=== PATIENT | female | born 1975 | race Caucasian/White ===

== ENCOUNTER 2021-10-29 07:00 | Outpatient (RCR) | payer SELFPAY | END 2021-11-18 13:21 | disposition home or self-care (01) | LOC: PT.CARL 07:00 | PROVIDERS: Visit Provider Emergency Medicine | DX: M54.2 Cervicalgia (principal); M54.50 Low back pain, unspecified | CPT/HCPCS: 20560; 97010; 97014; 97110; 97140; 97163; G0283 ==

== ENCOUNTER 2022-05-08 04:37 | Emergency (ER) | payer BC, SELFPAY ==
[2022-05-08 04:40] VITALS: BMI 26.6
[2022-05-08 04:41] VITALS: BP 143/89; PULSE 84; RESP 16; TEMP 36.6; O2SAT 98; BMI 26.6
--- NOTE | 2022-05-08 04:44 | CT_ITS ---
PROCEDURE INFORMATION: Exam: CT Abdomen And Pelvis Without Contrast Exam date and time: 05/08/2022 5:00 AM Age: 46 years old Clinical indication: Abdominal pain; Flank; Left; Prior surgery; Surgery type: Cholecystectomy; Additional info: L lower abd flank pain TECHNIQUE: Imaging protocol: Computed tomography of the abdomen and pelvis without contrast. Radiation optimization: All CT scans at this facility use at least one of these dose optimization techniques: automated exposure control; mA and/or kV adjustment per patient size (includes targeted exams where dose is matched to clinical indication); or iterative reconstruction. COMPARISON: No relevant prior studies available. FINDINGS: Liver: Calcified hepatic granulomas. Gallbladder and bile ducts: Prior cholecystectomy. Pancreas: Normal. No ductal dilation. Spleen: Calcified splenic granulomas. Adrenal glands: Normal. No mass. Kidneys and ureters: Small nonobstructing left renal calculus. 3 mm calculus in the distal most left ureter associated with mild left hydroureteronephrosis. Stomach and bowel: Unremarkable. No obstruction. No mucosal thickening. Appendix: No evidence of appendicitis. Intraperitoneal space: Unremarkable. No free air. No significant fluid collection. Vasculature: Few atheromatous vascular calcifications. Lymph nodes: Unremarkable. No enlarged lymph nodes. Urinary bladder: Unremarkable as visualized. Reproductive: Unremarkable as visualized. Bones/joints: Unremarkable. No acute fracture. Soft tissues: Unremarkable. IMPRESSION: 1. Small distal most left ureteral calculus causing mild obstruction. 2. Additional nonobstructing left renal calculus. 3. Other nonacute findings above.
[2022-05-08 04:46] LABS: Microscopic, Urine URINE MICROSCOPIC (MICROSCOPIC)
[2022-05-08 04:47] LABS: Appearance,Urine CLEAR (Clear); Bilirubin,Urine Negative (Negative); Blood, Urine 3+ (Negative); Color,Urine YELLOW (Yellow); Glucose,Urine (UA) Negative (Negative); Ketones,Urine Negative (Negative); Leukocyte Esterase,Urine TRACE (Negative); Nitrate,Urine Negative (Negative); PH,Urine 5.5 (5.0-8.5); Protein,Urine Negative (Negative); Specific Gravity, Urine >= 1.030 (1.005-1.030); Urobilinogen,Urine 0.2 EU/dl (0.2)
[2022-05-08 04:51] LABS: Urine Pregnancy, HCG Qual. Negative (Negative)
[2022-05-08 04:57] LABS: Basophils # 0.1 K/mm3 (0-0.2); Basophils % 1.1 % (0.1-2.0); Eosinophils # 0.3 K/mm3 (0.0-0.4); Eosinophils % 2.3 % (0.1-12.0); Lymphocytes # 3.1 K/mm3 (0.7-4.5); Lymphocytes % 25.9 % (10-50); Mean Corpuscular HGB Conc 31.8 g/dL (31.8-35.4); Mean Corpuscular Hemoglobin 30.6 pg (27.0-31.2); Mean Corpuscular Volume 96.4 fl (81-99); Mean Platelet Volume 8.2 fl (7.4-10.4); Monocytes # 0.8 K/mm3 (0.1-1.0); Monocytes % 6.7 % (1.7-9.3); Neutrophils # 7.7 K/mm3 (1.8-7.8); Platelet Count 466 K/mm3 (142-424); Red Blood Count 4.88 M/mm3 (4.20-5.40); Red Cell Distribution Width 13.2 % (11.5-17.5); White Blood Count 12.1 K/mm3 (4.8-10.8)
[2022-05-08 05:00] LABS: Alanine Aminotransferase 28 U/L (12-78); Albumin Level 4.1 g/dl (3.5-5.0); Albumin/Globulin Ratio 1.5 (1.1-1.8); Alkaline Phosphatase 118 U/L (38-126); Anion Gap 11.1 mEq/L (5-15); Aspartate Amino Transferase 21 U/L (14-36); Bilirubin,Total 0.4 mg/dl (0.2-1.3); Blood Urea Nitrogen 24 mg/dl (7-17); Calcium 8.8 mg/dl (8.4-10.2); Carbon Dioxide 23 mmol/L (22.0-30.0); Chloride 111 mmol/L (98-107); Creatinine Clearance Estimated 102 mL/min (50-200); Estimated Glomerular Filt Rate 77 ml/min (>60); GFR (African American) 93 ML/MIN (>60); Globulin 2.7 g/dL (1.3-3.2); Glucose 86 mg/dl (74-100); Potassium 3.1 mmoL/L (3.5-5.1); Sodium 142 mmol/L (136-145); Total Protein,Serum 6.8 g/dl (6.3-8.2)
[2022-05-08 05:03] LABS: Bacteria,Urine Trace /lpf
[2022-05-08 05:11] LABS: C-Reactive Protein < 0.3 mg/L (0-4)
--- NOTE | 2022-05-08 05:15 | PC.NURSE ---
MD MADE AWARE OF POTASSIUM 3.1.
--- NOTE | 2022-05-08 05:20 | HMH.EDABDPAI ---
Discharge Plan Disposition Patient Disposition: Home, Self-Care Prescriptions Prescriptions: New tamsulosin [Flomax] 0.4 mg capsule 0.4 mg PO DAILY Qty: 10 0RF No Action ibuprofen 800 mg tablet 800 mg PO Q6 PRN (Reason: Pain) Label Comments: TAKE 1 TABLET BY MOUTH EVERY 6 HOURS NEEDED FOR PAIN Referrals Follow up/Referrals: Yoav Rapp MD [Primary Care Provider] - See instructions Clinical Impressions Clinical Impression: Renal colic on left side Instructions Patient Instructions: DI for Kidney Stones Discharge ED Provider: Mj Hernandez Abdominal Pain HPI General Chief Complaint: Abdominal Pain Stated Complaint: Back Pain Time Seen by Provider: 05/08/22 05:20 Mode of Arrival: EMS Source of Information: Patient, EMS and Medical Record Limitations: No Limitations Description of Symptoms (Recalled from ER Triage Doc. by RN): PT WOKE UP WITH LEFT FLANK PAIN AT 0300 THAT HAS NOT RESOLVED AFTER TAKING MOTRIN. History of Present Illness HPI narrative: wf with lt lower abd pain with rad to flank tonight complaint: abdominal pain and flank pain Onset (ago): hour(s) Consistency: intermittent Location: LLQ and L flank Severity: moderate Quality: sharp Associated symptoms: denies other symptoms Related Data Home Medications Medication Instructions Recorded Confirmed ibuprofen 800 mg tablet 800 mg PO Q6 PRN Pain 05/08/22 05/08/22 Previous Rx's Medication Instructions Recorded tamsulosin 0.4 mg capsule (Flomax) 0.4 mg PO DAILY #10 caps 05/08/22 Allergies Allergy/AdvReac Type Severity Reaction Status Date / Time No Known Allergies Allergy Verified 05/08/22 04:40 PFSH PFS Medical History (Updated 05/08/22 @ 07:17 by Mj Hernandez MD) COPD (chronic obstructive pulmonary disease) History of COVID-19 Pulmonary fibrosis, unspecified Surgical History (Updated 05/08/22 @ 04:51 by Rosibel Leblanc RN) History of cholecystectomy Social History (Updated 05/08/22 @ 04:53 by Rosibel Leblanc, GARCIA) Smoking Status: Current every day smoker alcohol intake: never current occupational status: employed Travel in the last 8 weeks: None ROS Obtained: Yes All systems reviewed & no additional complaints except as documented Constitutional Constitutional: Denies fever(s) Cardiovascular Cardiovascular: Denies chest pain Respiratory Respiratory: Denies cough Gastrointestinal Gastrointestingal: Reports as per HPI and abdominal pain Genitourinary Female Genitourinary: Denies abnormal vaginal bleeding Physical Exam General General appearance: alert Head Head exam: normocephalic Eye Eye exam: Present PERRL and EOMI; Absent scleral icterus ENT ENT exam: Present mucous membranes moist Neck Neck exam: Present trachea midline Respiratory Respiratory exam: Present normal lung sounds bilaterally; Absent respiratory distress Cardiovascular Cardiovascular exam: Present regular rate; Absent systolic murmur Abdominal Exam Abdominal exam: Present soft and tenderness; Absent guarding or rebound Abdominal tenderness: Present LLQ and moderate Extremities Exam Extremities exam: Present full ROM; Absent calf tenderness Back Exam Back exam: Absent CVA tenderness (L) Neurological Exam Neurological exam: Present alert, oriented X3 and CN II-XII intact; Absent motor sensory deficit Psychiatric Psychiatric exam: Present normal affect Skin Skin exam: Absent rash Medical Decision Making Medical Records Medical records reviewed: Yes I reviewed the patient's medical records. Tam Inquiry Pt receiving controlled substance: No Vital Signs: 05/08/22 04:41 05/08/22 05:21 05/08/22 05:30 Temperature 97.9 F Temperature Source Oral Pulse Rate 87 68 Pulse Rate [Left Radial] 84 Respiratory Rate 16 16 Blood Pressure 142/78 H 163/86 H Blood Pressure [Left Arm] 143/89 H Blood Pressure Mean 113 Blood Pressure Mean [Left Arm] 107 Blood Pressure Source [Left
[2022-05-08 05:21] VITALS: BP 142/78; PULSE 87; RESP 16; O2SAT 97
[2022-05-08 05:23] LABS: Erythrocyte Sedimentation Rate 11 mm/hr (0-20)
[2022-05-08 05:30] VITALS: BP 163/86; PULSE 68; O2SAT 100
[2022-05-08 05:36] LABS: Amylase 91 U/L (30-110); Lipase 80 U/L (23-300)
[2022-05-08 06:00] VITALS: BP 155/76; PULSE 58; O2SAT 98
--- NOTE | 2022-05-08 07:10 | PC.NURSE ---
Called pt's to verbalize consent for CT scan. Signed consent with with support technician Margaret
[2022-05-08 07:14] VITALS: BP 133/72; PULSE 78; RESP 18; TEMP 36.6; O2SAT 98
== END 2022-05-08 07:40 | disposition home or self-care (01) ==
PROVIDERS: Emergency Provider Emergency Medicine; PCP Social Worker
DX: N20.2 Calculus of kidney with calculus of ureter (principal); Z72.0 Tobacco use
CPT/HCPCS: 74176; 80053; 81001; 81025; 82150; 83690; 84145; 85025; 85651; 86140; 96365; 96375; 96376; 99284; J2405

== ENCOUNTER 2024-05-15 09:38 | Emergency (ER) | payer OTHER, SELFPAY ==
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
--- OUTSIDE RECORDS SUMMARY | 2024-05-15 09:43 | XMS_ITS ---
Author Organization [facility] Address [address] [place] [address] Phone Care Team Providers Care Marketing Associate Name Role Phone Meño CM, Jean Ashraf Unavailable [phone] Yoav Rapp MD Unavailable [phone] Problems Includes: Active, inactive, and resolved Problems All Visits Onset Date Resolved Date Provider Condition S tatus Neck Pain 06/26/2022 Jean Wilder MD Active Last Documented On 8:58AM ; [facility] Plan of Treatment Instructions to patient Intervention and counseling on cessation of tobacco use Last Documented On 2 9:04AM ; [facility] Lose weight Last Documented On 2 9:05AM ; [facility] Assessments Includes: Assessments for all patient encounters No Assessments Recorded Instructions Includes: Instructions for all patient encounters Instructions to patient Intervention and counseling on cessation of tobacco use Last Documented On 2 9:04AM ; [facility] Lose weight Last Documented On 9:05AM ; [facility] Medical Equipment - Implanted Devices Includes: Current and historical Devices No Medical Equipment Recorded Medications Includes: Current and historical Medications Current Medications (continue as prescribed) Ipratropium-Albuterol 0.5-2.5 (3) MG/3ML Inhalat ion Solution 06/04/2022 Provider: Diagnosis: Last Documented On 2 8:59AM By Estefanía Rosales ; [facility] Symbicort 160-4.5 MCG/ACT Inhalation Aerosol Provider: Diagnosis: Last Documented On 2 8:59AM By Estefanía Rosales ; [facility] ALPRAZolam 0.5 MG Oral Tablet 06/04/2022 Provider: Diagnosis: Last Documented On 2 8:59AM By Jane Cordero ; [facility] Vitamin D3 1.25 MG (53372 UT) Oral Capsule 06/04/2022 Provider: Diagnosis: Last Documented On 2 8:59AM By [facility] HYDROcodone-Acetaminophen 5- 325 MG Oral Tablet 05/08/2022 Provider: Mj Hernandez MD Diagnosis: Last Documented On 2 8:59AM By Estefanía Rosales ; [facility] Tamsulosin HCl 0.4 MG Oral Capsule 05/08/2022 Provid er: Mj Hernandez MD Diagnosis: Last Documented On 2 8:59AM By Estefanía Rosales ; [facility] Ibuprofen 800 MG Oral Tablet 01/29/2022 Provider: Diagnosis: Last Documented On 2 8:59AM By Estefanía Rosales ; [facility] Past Medications on file ALPRAZolam 0.5 MG Oral Tablet 06/04/2022 - 06/26/2022 Provider: Diagnosis: Last Documented On 2 8:59AM By Jane Cordero ; [facility] Vitamin D3 1.25 MG (65456 UT) Oral Capsule 06/04/2022 - 06/26/2022 Provider: Diagnosis: Last Documented On 2 8:59AM By Jane Cordero ; [facility] Medications Administered Includes: Administered Medications in patient's chart No Administered Medications Recorded Results Includes: Results from 05/15/2023 through 05/15/2024 No Results Recorded For Specified Dates History of Present Illness History of Present Illness not supported for this document type No History of Present Illness Recorded Social History Description Last Updated Tobacco use 06/26/2022 Last Documented On 2 10:27AM ; [facility] Caffeine use 06/26/2022 Last Documented On 2 10:27AM ; [facility] No recent change in diet 06/26/2022 Last Documented On 2 10:27AM ; [facility] Not exercising regularly 06/26/2022 Last Documented On 2 10:27AM ; [facility], [facility] Not using alcohol 06/26/2022 Last Documented On 2 10:27AM ; [facility], [facility] Not using drugs 06/26/2022 Last Documented On 2 10:27AM ; [facility], [facility] Yes, current smoker. 06/26/2022 Last Documented On 2 10:27AM ; [facility], [facility] Never drank alcohol 06/26/2022 Last Documented On 2 10:27AM ; [facility], [facility] Working part-time 06/26/2022 Last Documented On 2 10:27AM ; [facility], [facility] Smoking Status Unknown Procedures and Surgical History Surgical History Last Updated History of History of Gallbladder 2021 Last Documented On 2 10:27AM ; [facility], [facility] Medical History Includes: Medical History in patient's chart Description Last Updated Pulmonary fibrosis 06/26/2022 Last Documented On 2 10:27AM ; [facility], [facility] No recent immunization for flu 2 Last Documented On 2 10:27AM ; [facility], [facility] No recent immunization for pneumococcal pneumonia 06/26/2022 Last Documented On 2 10:27AM ; [facility], [facility] Family History Includes: Family History in patient's chart Description Last Updated Family history of cancer 06/26/2022 Last Documented On 2 10:27AM ; [facility], [facility] Paternal grandfather's history of family history of cancer 06/26/2022 Last Documented On 2 10:27AM ; [facility], [facility] Review of Systems Review of Systems not supported for this document type No Review of Systems Recorded Mental Status Description No anxiety Functional Status No Functional Status Recorded Physical Exam Physical Exam not supported for this document type No Physical Exam Recorded Allergies Includes: Active, inactive, and resolved Allergies No Known Allergies Insurance Includes: Active Insurance Policies Plan Name Member ID Group # Subscriber Relationship Effect parrish Dates 1 - [facility] [id number] Vita Craig Self Clinical Notes Includes: Signed Clinical Notes starting from 08/14/2022 No Clinical Notes Recorded
--- OUTSIDE RECORDS SUMMARY | 2024-05-15 09:43 | XMS_ITS ---
Care Plan - [facility], [facility] Created on: May 15, 2024 Vita Craig : 1975 Sex: Female Author Organization [facility] Address [address] [place] [address] Phone Care Team Providers Care Intranet Specialist Name Role Phone Meño CM, Jean Ashraf Unavailable [phone] Dionte CM, Yoav Unavailable [phone]
[2024-05-15 10:05] VITALS: BP 147/85; PULSE 91; RESP 20; TEMP 36.5; O2SAT 97; BMI 27.3
--- NOTE | 2024-05-15 10:16 | XR_ITS ---
PROCEDURE INFORMATION: Exam: XR Chest Exam date and time: 05/15/2024 10:27 AM Age: 48 years old Clinical indication: Cough; Additional info: Cough/congestion x 1 week, smoker TECHNIQUE: Imaging protocol: Radiologic exam of the chest. Views: 2 views. COMPARISON: CT ABDOMEN PELVIS WO CON 05/08/2022 5:00 AM FINDINGS: Lungs: No evidence of pneumonia or interstitial edema. Pleural spaces: Unremarkable. No pleural effusion. No pneumothorax. Heart/Mediastinum: Unremarkable. No cardiomegaly. Bones/joints: Unremarkable. IMPRESSION: No evidence of pneumonia or interstitial edema.
--- NOTE | 2024-05-15 10:16 | EXP.UTC ---
Discharge Plan Disposition Patient Disposition: Home, Self-Care Condition: Good Prescriptions Prescriptions: New promethazine-DM 6.25-15 mg/5 mL syrup 5 ml PO Q6H PRN (Reason: cough) Qty: 118 0RF azithromycin [Zithromax Z-Eh] 250 mg tablet See Rx Instructions .ROUTE .COMPLEX 5 Days Qty: 6 0RF Rx Instructions: For 250 mg dose pack: take 500 mg today (day 1), then 250 mg for 4 days (days 2-5) methylprednisolone [Medrol (Eh)] 4 mg tablets,dose pack See Rx Instructions .Route .COMPLEX 6 Days Qty: 21 0RF Rx Instructions: taper pack; No Action budesonide-formoterol [Breyna] 160-4.5 mcg/actuation HFA aerosol inhaler 2 puff INHALATION BID Patient Comments: INHALE 2 PUFFS BY MOUTH TWICE DAILY Referrals Follow up/Referrals: Yoav Rapp MD [Primary Care Provider] - See instructions Activity Restrictions/Add. Instructions Additional Instructions/Restrictions: Start antibiotic today. Be sure to complete entire prescription even if feeling better Monitor temp. Tylenol every 4 hours as needed and / or ibuprofen every 6 hours as needed ( As long as your primary care physician has told you that it ok to take both. For fever/aches/pains ER if no less than 101 despite Tylenol or Motrin Humidifier/vaporizer or hot steamy shower Inhaler every 4-6 hours as needed like we discussed. If unsure how to use it, ask pharmacist to demonstrate how. Should help open airways and improve cough, wheezing, and shortness of breath Mucinex during the day for your cough and cough suppressant only at night. Be sure to drink lots of water. Insurance may not cover a prescriptions for mucinex. Might be cheaper to get 400mg tablets and take 2 tablet in the morning, mid-day and evening with lots of water. *Promethazine DM cough syrup will cause drowsiness. Use only at night. No driving, operating machinery or caring for small children after taking it *Start steroid today. Helps with inflammation therefore, cough and wheezing. Follow directions on the package. Reviewed side effects. Patient reports taking them before. Follow up IMMEDIATELY for new or worsening of symptoms OR no noticeable improvement over the next 48-72 hours. 911 immediately for any life threatening symptoms such as chest pain or difficulty breathing Clinical Impressions Clinical Impression: Bronchitis Instructions Patient Instructions: Acute Bronchitis Print Language Print Language: Vincentian Discharge ED Provider: Lou Vogt [facility] HPI General Stated complaint: cough, congestion Time Seen by Provider: 05/15/24 10:16 History of Present Illness Provider Complaint: Patient states that she has been having sore throat, cough and congestion and pain in left ribs at times with coughing States she was worried that she may have Bronchitis or Pneumonia States she has been taking some cough medications but they havent helped much so today when she was still feeling wheezy at times and having cough and chest congestion she came in to get checked Related Data Home Medications ?Medication ?Instructions ?Recorded ?Confirmed budesonide-formoterol HFA 160 2 puff inhalation BID 05/15/24 05/15/24 mcg-4.5 mcg/actuation aerosol inhaler (Breyna) Previous Rx's ?Medication ?Instructions ?Recorded azithromycin 250 mg tablet See Rx Instructions PO .COMPLEX 5 05/15/24 (Zithromax Z-Eh) days #6 tabs methylprednisolone 4 mg tablets in See Rx Instructions .Route 05/15/24 a dose pack (Medrol (Eh)) .COMPLEX 6 days #21 tabs promethazine-DM 6.25 mg-15 mg/5 mL 5 ml PO Q6H PRN cough #118 mL 05/15/24 oral syrup Allergies Allergy/AdvReac Type Severity Reaction Status Date / Time No Known Allergies Allergy Verified 05/08/22 04:40 [facility] Disclaimer: The information contained in this section may have been updated after the patient was seen, as this information can be updated by other users. Medical History (Updated 05/15/24 @ 11:28 by Lou Vogt APRN) Urinary tract infection Kidney stone Anxiety Pulmonary fibrosis, unspecified History of COVID-19 COPD (chronic obstructive pulmonary disease) Surgical History History of cholecystectomy Social History (Updated 05/08/22 @ 07:17 by Mj Hernandez MD) Smoking Status: Current every day smoker alcohol intake: never current occupational status: employed Travel in the last 8 weeks: None ROS Obtained: Yes All systems reviewed & no additional complaints except as documented and Yes Systems reviewed as appropriate & no additional complaints except as documented Constitutional Constitutional: Reports system reviewed and no additional complaints, except as documented and Reports as per HPI ENT Ears, Nose, Mouth, and Throat: Reports system reviewed and no additional complaints, except as documented, Reports as per HPI, Reports nasal congestion, Reports nasal discharge and Reports sore throat (earlier in the week not now) Cardiovascular Cardiovascular: Reports system reviewed and no additional complaints, except as documented and Reports as per HPI Respiratory Respiratory: Reports system reviewed and no additional complaints, except as documented, Reports as per HPI, Reports shortness of breath and Reports cough Gastrointestinal Gastrointestingal: Reports system reviewed and no additional complaints, except as documented and as per HPI Physical Exam General General appearance: alert and in no apparent distress Respiratory Respiratory exam: Present normal lung sounds bilaterally; Absent respiratory distress or wheezes Cardiovascular Cardiovascular exam: Present regular rate, normal rhythm and normal heart sounds Neurological Exam Neurological exam: Present alert, oriented X3 and normal gait Medical Decision Making Tam Inquiry Pt receiving controlled substance: No Tam was queried for this patient: No Orders (Tests/Meds): ORDERS Category Date Time Status Chest XR 2 view (NOT portable) [XR chest 2V] Stat Exams 05/15/24 10:16 Ordered Radiology Data #1: Image(s): Chest Image Reviewed: Yes I have reviewed radiologist's interpretation IMPRESSION: No evidence of pneumonia or interstitial edema.
[2024-05-15 11:31] VITALS: BP 147/85; PULSE 91; RESP 20; TEMP 36.5; O2SAT 97
== END 2024-05-15 11:36 | disposition home or self-care (01) ==
PROVIDERS: Emergency Provider Nurse Practitioner; PCP Social Worker
DX: J20.9 Acute bronchitis, unspecified (principal); R06.2 Wheezing; R07.0 Pain in throat; R05.9 Cough, unspecified
CPT/HCPCS: 71046; 99204; 99212; G0463

== ENCOUNTER 2024-06-04 13:52 | Emergency (ER) | payer OTHER, SELFPAY ==
[2024-06-04 13:53] VITALS: BP 166/108; PULSE 89; RESP 18; TEMP 36.7; O2SAT 98; BMI 26.8
--- NOTE | 2024-06-04 14:12 | PC.NURSE ---
Rounded on patient, tech took patient a warm blanket per patients request.
[2024-06-04 14:26] LABS: Microscopic, Urine URINE MICROSCOPIC (MICROSCOPIC)
[2024-06-04 14:29] LABS: Appearance,Urine CLEAR (Clear); Blood, Urine 2+ (Negative); Color,Urine YELLOW (Yellow); Glucose,Urine (UA) TRACE (Negative); Ketones,Urine Negative (Negative); Leukocyte Esterase,Urine TRACE (Negative); Nitrate,Urine POSITIVE (Negative); Protein,Urine 2+ (Negative); Specific Gravity, Urine 1.025 (1.005-1.030)
--- NOTE | 2024-06-04 14:31 | CT_ITS ---
PROCEDURE INFORMATION: Exam: CT Abdomen And Pelvis Without Contrast Exam date and time: 06/04/2024 2:42 PM Age: 48 years old Clinical indication: Abdominal pain; Flank; Left; Additional info: L flank/llq pain TECHNIQUE: Imaging protocol: Computed tomography of the abdomen and pelvis without contrast. Radiation optimization: All CT scans at this facility use at least one of these dose optimization techniques: automated exposure control; mA and/or kV adjustment per patient size (includes targeted exams where dose is matched to clinical indication); or iterative reconstruction. COMPARISON: CT ABDOMEN PELVIS WO CON 05/08/2022 5:00 AM FINDINGS: Liver: Calcified liver granulomata. Gallbladder and biliary ducts: Cholecystectomy. Pancreas: Normal. No ductal dilation. Spleen: Calcified splenic granulomata. Adrenal glands: Normal. No mass. Kidneys and ureters: 4 mm stone in the left ureter midportion with moderate hydronephrosis, perinephric stranding and mild proximal hydroureter. Stomach and bowel: Unremarkable. No obstruction. No mucosal thickening. Appendix: No evidence of appendicitis. Intraperitoneal space: Unremarkable. No free air. No significant fluid collection. Vasculature: Atherosclerosis. Lymph nodes: Unremarkable. No enlarged lymph nodes. Urinary bladder: Unremarkable as visualized. Reproductive: Unremarkable as visualized. Bones/joints: Unremarkable. No acute fracture. Soft tissues: Unremarkable. IMPRESSION: 1. 4 mm stone in the left ureter midportion with moderate hydronephrosis, perinephric stranding and mild proximal hydroureter. 2. Atherosclerosis. 3. Evidence of prior granulomatous disease.
[2024-06-04 14:34] LABS: Basophils # 0.1 K/mm3 (0-0.2); Basophils % 0.4 % (0.1-2.0); Eosinophils # 0.3 K/mm3 (0.0-0.4); Hematocrit 44.6 % (37.0-47.0); Hemoglobin 15.4 g/dL (12.2-16.2); Lymphocytes % 14.1 % (10-50); Mean Corpuscular HGB Conc 34.5 g/dL (31.8-35.4); Mean Corpuscular Hemoglobin 32.6 pg (27.0-31.2); Mean Corpuscular Volume 94.4 fl (81-99); Mean Platelet Volume 7.8 fl (7.4-10.4); Monocytes # 1.1 K/mm3 (0.1-1.0); Neutrophils # 10.5 K/mm3 (1.8-7.8); Neutrophils % 75.6 % (37.0-80.0); Platelet Count 279 K/mm3 (142-424); Red Blood Count 4.73 M/mm3 (4.20-5.40); Red Cell Distribution Width 13.5 % (11.5-17.5); White Blood Count 13.9 K/mm3 (4.8-10.8)
--- NOTE | 2024-06-04 14:34 | ED_ITS ---
Discharge Plan Disposition Patient Disposition: Home, Self-Care Prescriptions Prescriptions: New hydrocodone-acetaminophen 5-325 mg tablet 1 tab PO Q6H PRN (Reason: pain) 3 Days Qty: 12 0RF ibuprofen 600 mg tablet 600 mg PO Q8H PRN (Reason: pain) 7 Days Qty: 21 0RF ondansetron 4 mg tablet,disintegrating 4 mg PO Q6H PRN (Reason: nausea and vomiting) 5 Days Qty: 20 0RF cefdinir 300 mg capsule 300 mg PO BID 10 Days Qty: 20 0RF No Action budesonide-formoterol [Breyna] 160-4.5 mcg/actuation HFA aerosol inhaler 2 puff INHALATION BID Patient Comments: INHALE 2 PUFFS BY MOUTH TWICE DAILY promethazine-DM 6.25-15 mg/5 mL syrup 5 ml PO Q6H PRN (Reason: cough) Qty: 118 0RF azithromycin [Zithromax Z-Eh] 250 mg tablet See Rx Instructions .ROUTE .COMPLEX 5 Days Qty: 6 0RF Rx Instructions: For 250 mg dose pack: take 500 mg today (day 1), then 250 mg for 4 days (days 2-5) methylprednisolone [Medrol (Eh)] 4 mg tablets,dose pack See Rx Instructions .Route .COMPLEX 6 Days Qty: 21 0RF Rx Instructions: taper pack; Referrals Follow up/Referrals: Yoav Rapp MD [Primary Care Provider] - See instructions Mayur Mahmood MD [Staff Physician] - See instructions Activity Restrictions/Add. Instructions Additional Instructions/Restrictions: You have a 4 mm mid ureteral obstructing kidney stone. You also have a urinalysis that is nitrite positive but this is most likely secondary to the Pyridium that you have recently been using and you have no signs or symptoms clinically of a kidney infection or sepsis. Additionally your kidney function is a little bit worse than normal and I recommend that you repeat your creatinine within the next week. If you have any high fevers chills refractory symptoms I recommend that you go to an emergency department that has urology coverage or return here and we may transfer you. As discussed you are offered transfer but we are opting with shared decision making for outpatient management. I recommend that you call Dr. Montero first thing on Thursday for a follow-up appointment. Additionally please follow-up with your urine culture and if negative you may discontinue antibiotics. Clinical Impressions Clinical Impression: Hydronephrosis with urinary obstruction due to ureteral calculus Instructions Patient Instructions: DI for Urinary Tract Infection (UTI), DI for Urinary Tract Infection in Children Print Language Print Language: Khmer Discharge ED Provider: Krzysztof Moody General Adult HPI <Frannie Merlos - Last Filed: 06/04/24 15:27> General Chief complaint: Urogenital-Female Stated complaint: poss kidney stone Time Seen by Provider: 06/04/24 14:14 Mode of Arrival: Ambulatory Source of Information: Patient Limitations: No Limitations Description of Symptoms (Recalled from ER Triage Doc. by RN): left back and abdominal pain. has history of kidney stones History of Present Illness HPI narrative: This patient is a 48-year-old female with a history of tobacco use presenting to the emergency department for evaluation with concern for left flank pain radiating to her left lower quadrant. She states that she tried taking [id number] medications at home including Pyridium, however her symptoms are not improving. She is operating this morning. She notes that the pain is intermittent and nothing seems to bring it on or make it worse. No fevers, chills, nausea, vomiting, changes bowel movements, or other concerns. She does report a history of kidney stones and states this does feel similar. Related Data Home Medications ?Medication ?Instructions ?Recorded ?Confirmed budesonide-formoterol HFA 160 2 puff inhalation BID 05/15/24 05/15/24 mcg-4.5 mcg/actuation aerosol inhaler (Breyna) Previous Rx's ?Medication ?Instructions ?Recorded azithromycin 250 mg tablet See Rx Instructions PO .COMPLEX 5 05/15/24 (Zithromax Z-Eh) days #6 tabs methylprednisolone 4 mg tablets in See Rx Instructions .Route 05/15/24 a dose pack (Medrol (Eh)) .COMPLEX 6 days #21 tabs promethazine-DM 6.25 mg-15 mg/5 mL 5 ml PO Q6H PRN cough #118 mL 05/15/24 oral syrup cefdinir 300 mg capsule 300 mg PO BID 10 days #20 caps 06/04/24 hydrocodone 5 mg-acetaminophen 325 1 tab PO Q6H PRN pain 3 days #12 06/04/24 mg tablet tabs ibuprofen 600 mg tablet 600 mg PO Q8H PRN pain 7 days #21 10/05/24 tabs ondansetron 4 mg disintegrating 4 mg PO Q6H PRN nausea and 06/04/24 tablet vomiting 5 days #20 tabs Allergies Allergy/AdvReac Type Severity Reaction Status Date / Time No Known Allergies Allergy Verified 05/08/22 04:40 PFSH <Frannie Merlos DO - Last Filed: 06/04/24 15:27> PFS Disclaimer: The information contained in this section may have been updated after the patient was seen, as this information can be updated by other users. Medical History Urinary tract infection Kidney stone Anxiety Pulmonary fibrosis, unspecified History of COVID-19 COPD (chronic obstructive pulmonary disease) Surgical History History of cholecystectomy Social History Smoking Status: Current every day smoker alcohol intake: never current occupational status: employed Travel in the last 8 weeks: None <Frannie Merlos DO - Last Filed: 06/04/24 15:27> ROS Obtained: Yes All systems reviewed & no additional complaints except as documented Physical Exam <DO Bulmaro Snowden Last Filed: 06/04/24 15:27> General General appearance: alert and in no apparent distress Head Head exam: atraumatic and normocephalic Eye Eye exam: Present normal appearance, PERRL and EOMI ENT ENT exam: Present normal exam, normal oropharynx, mucous membranes moist and normal external ear exam Neck Neck exam: Present normal inspection, full ROM and trachea midline; Absent tenderness Chest Chest inspection: Present normal inspection and symmetric chest wall rise; Absent tenderness Respiratory Respiratory exam: Present normal lung sounds bilaterally; Absent respiratory distress, wheezes, stridor or accessory muscle use Cardiovascular Cardiovascular exam: Present regular rate and normal rhythm Abdominal Exam Abdominal exam: Present soft; Absent distention, tenderness or guarding Extremities Exam Extremities exam: Present normal inspection, full ROM and normal capillary refill; Absent tenderness or edema Back Exam Back exam: Present full ROM and CVA tenderness (L) Neurological Exam Neurological exam: Present alert, oriented X3, CN II-XII intact and normal gait; Absent motor sensory deficit Psychiatric Psychiatric exam: Present normal affect and normal mood Skin Skin exam: Present warm and dry Medical Decision Making <Frannie Merlos, DO - Last Filed: 06/04/24 15:27> Medical Records Medical records reviewed: Yes I reviewed the patient's medical records. Screening: Per USPSTF and CDC recommendations, given the prevalence of disease in our region, it is our hospital?s policy to screen for HIV and viral Hepatitis for all patients aged 18 and over and those with ongoing risk factors. Tam Inquiry Pt receiving controlled substance: No Vital Signs: 06/04/24 13:53 06/04/24 15:00 06/04/24 15:30 Temperature 98.1 F Temperature Source Oral Pulse Rate 79 72 Pulse Rate [Right] 89 Respiratory Rate 18 18 18 Blood Pressure 103/60 L 134/81 Blood Pressure [Right Arm] 166/108 H Blood Pressure Mean 74 98 Blood Pressure Mean [Right Arm] 127 02 Sat by Pulse Oximetry 98 98 99 Lab Data Lab results reviewed: Yes I reviewed the patient's lab results. Lab Results 06/04/24 14:21: Urine Color Yellow, Urine Appearance Clear, Urine pH 6.0, Ur Specific [place] 1.025, Urine Protein 2+ A, Urine Glucose (UA) Trace, Urine Ketones Negative, Urine Blood 2+ A, Urine Nitrate Positive, Urine Bilirubin 2+ A , Urine Urobilinogen 4.0, Ur Leukocyte Esterase Trace, Urine RBC 5-10, Urine WBC 3-5, Ur Squamous Epith Cells 3-5, Urine Bacteria 1+, Urine Yeast Occasional 06/04/24 14:29: WBC 13.9 H, RBC 4.73, Hgb 15.4, Hct 44.6, MCV 94.4, MCH 32.6 H, MCHC 34.5, RDW 13.5, Plt Count 279, MPV 7.8, Neut % (Auto) 75.6, Lymph % (Auto) 14.1, Swain % (Auto) 8.0, Eos % (Auto) 2.0, Baso % (Auto) 0.4, Neut # (Auto) 10.5 H, Lymph # (Auto) 2.0, Swain # (Auto) 1.1 H, Eos # (Auto) 0.3, Baso # (Auto) 0.1, Sodium 136, Potassium 4.3, Chloride 106, Carbon Dioxide 23, Anion Gap 11.3, BUN 22 H, Creatinine 1.10 H, Estimated Creat Clear 73, Estimated GFR 53 L, Est GFR ( Amer) 64, Glucose 89, Calcium 9.2, Total Bilirubin 1.0, AST 30, ALT 22, Alkaline Phosphatase 105, Total Protein 7.0, Albumin 4.3, Globulin 2.7, Albumin/Globulin Ratio 1.6, HIV 1&2 Antibody Rapid Nonreactive 06/04/24 14:29 06/04/24 14:29 Orders (Tests/Meds): ED MEDICATIONS Discontinued Medications Generic Name Dose Route Start Last Admin Trade Name Freq PRN Reason Stop Dose Admin Acetaminophen 1,000 mg 06/04/24 14:31 06/04/24 14:39 Acetaminophen 1,000mg/100ml Vial IV 06/04/24 14:32 1,000 mg ONCE ONE Administration Lactated Ringer's 1,000 mls @ 999 mls/hr 06/04/24 14:31 06/04/24 14:40 Lactated Ringer's 1000 Ml Bag IV 06/04/24 15:31 999 mls/hr .Q1H1M ONE Administration Ceftriaxone Sodium 2 gm/ 100 mls @ 200 mls/hr 06/04/24 15:38 06/04/24 15:43 Sodium Chloride IV 06/04/24 16:07 200 mls/hr ONCE ONE Administration Ketorolac Tromethamine 15 mg 06/04/24 14:31 06/04/24 14:40 Ketorolac 30mg/Ml Vial IV 06/04/24 14:32 15 mg ONCE ONE Administration Morphine Sulfate 4 mg 06/04/24 15:37 06/04/24 15:43 Morphine 4mg/Ml Syringe IV 06/04/24 15:38 4 mg ONCE ONE Administration Tamsulosin HCl 0.4 mg 06/04/24 15:38 06/04/24 15:43 Tamsulosin 0.4mg Capsule PO 06/04/24 15:39 0.4 mg ONCE ONE Administration ORDERS Category Date Time Status CT abdomen pelvis wo con Stat Cat Scan 06/04/24 14:31 Completed Complete Blood Count Auto Diff Stat Lab 06/04/24 14:29 Completed Comprehensive Metabolic Panel Stat Lab 06/04/24 14:29 Completed HIV (1&2) Antibody Rapid Stat Lab 06/04/24 14:29 Completed Hep C Ab with Reflex to RNA Stat Lab 06/04/24 14:29 Received UA [Urinalysis and Microscopic] Stat Lab 06/04/24 14:21 Completed Urine Culture Stat Micro 06/04/24 14:31 Ordered Medical Decision Narrative: In summary, this patient is a 48-year-old female presenting to the Emergency Department for evaluation of left flank pain. Differential diagnoses considered include but are not limited to ureterolithiasis, pyelonephritis, infected stone, sepsis, TIESHA. Ruling out the most morbid conditions drove assessment. It should be noted patient's history includes tobacco use which is not at goal therapy. This complicates all aspects of care by increasing patient's risk for morbidity. I reviewed patient's past medical records and noted previous evaluations with most recent being in 2021 for kidney stone. On exam, the patient is sitting upright in bed in no acute distress. She has left CVA tenderness. Workup included CBC, CMP, urinalysis, urine culture, CT abd pelvis without IV contrast. It would be difficult to ascertain whether or not the patient has an infected stone given urine will show false positive for nitrates and other markers given that she took Pyridium. She was given a liter bolus of IV fluids as well as IV Toradol and acetaminophen for symptomatic improvement. I independently interpreted CT scan prior to the radiologist read and noted proximal obstructive left ureterolithiasis with significant hydronephrosis. Please see their read for final interpretation. Labs demonstrated mild leukocytosis as well as TIESHA with a creatinine of 1.1 from 0.8. Urine is outside is difficult to determine whether or not the patient has an infection given that she took Pyridium. Ultimately, she would likely require transfer for possibly infected obstructive stone. Patient care signed out to the oncoming provider, Dr. Moody. <Krzysztof Moody MD - Last Filed: 06/04/24 16:30> Vital Signs: 06/04/24 13:53 06/04/24 15:00 06/04/24 15:30 Temperature 98.1 F Temperature Source Oral Pulse Rate 79 72 Pulse Rate [Right] 89 Respiratory Rate 18 18 18 Blood Pressure 103/60 L 134/81 Blood Pressure [Right Arm] 166/108 H Blood Pressure Mean 74 98 Blood Pressure Mean [Right Arm] 127 02 Sat by Pulse Oximetry 98 98 99 Lab Data Lab Results 06/04/24 14:21: Urine Color Yellow, Urine Appearance Clear, Urine pH 6.0, Ur Specific [place] 1.025, Urine Protein 2+ A, Urine Glucose (UA) Trace, Urine Ketones Negative, Urine Blood 2+ A, Urine Nitrate Positive, Urine Bilirubin 2+ A , Urine Urobilinogen 4.0, Ur Leukocyte Esterase Trace, Urine RBC 5-10, Urine WBC 3-5, Ur Squamous Epith Cells 3-5, Urine Bacteria 1+, Urine Yeast Occasional 06/04/24 14:29: WBC 13.9 H, RBC 4.73, Hgb 15.4, Hct 44.6, MCV 94.4, MCH 32.6 H, MCHC 34.5, RDW 13.5, Plt Count 279, MPV 7.8, Neut % (Auto) 75.6, Lymph % (Auto) 14.1, Swain % (Auto) 8.0, Eos % (Auto) 2.0, Baso % (Auto) 0.4, Neut # (Auto) 10.5 H, Lymph # (Auto) 2.0, Swain # (Auto) 1.1 H, Eos # (Auto) 0.3, Baso # (Auto) 0.1, Sodium 136, Potassium 4.3, Chloride 106, Carbon Dioxide 23, Anion Gap 11.3, BUN 22 H, Creatinine 1.10 H, Estimated Creat Clear 73, Estimated GFR 53 L, Est GFR ( Amer) 64, Glucose 89, Calcium 9.2, Total Bilirubin 1.0, AST 30, ALT 22, Alkaline Phosphatase 105, Total Protein 7.0, Albumin 4.3, Globulin 2.7, Albumin/Globulin Ratio 1.6, HIV 1&2 Antibody Rapid Nonreactive Orders (Tests/Meds): ED MEDICATIONS Discontinued Medications Generic Name Dose Route Start Last Admin Trade Name Freq PRN Reason Stop Dose Admin Acetaminophen 1,000 mg 06/04/24 14:31 06/04/24 14:39 Acetaminophen 1,000mg/100ml Vial IV 06/04/24 14:32 1,000 mg ONCE ONE Administration Lactated Ringer's 1,000 mls @ 999 mls/hr 06/04/24 14:31 06/04/24 14:40 Lactated Ringer's 1000 Ml Bag IV 06/04/24 15:31 999 mls/hr .Q1H1M ONE Administration Ceftriaxone Sodium 2 gm/ 100 mls @ 200 mls/hr 06/04/24 15:38 06/04/24 15:43 Sodium Chloride IV 06/04/24 16:07 200 mls/hr ONCE ONE Administration Ketorolac Tromethamine 15 mg 06/04/24 14:31 06/04/24 14:40 Ketorolac 30mg/Ml Vial IV 06/04/24 14:32 15 mg ONCE ONE Administration Morphine Sulfate 4 mg 06/04/24 15:37 06/04/24 15:43 Morphine 4mg/Ml Syringe IV 06/04/24 15:38 4 mg ONCE ONE Administration Tamsulosin HCl 0.4 mg 06/04/24 15:38 06/04/24 15:43 Tamsulosin 0.4mg Capsule PO 06/04/24 15:39 0.4 mg ONCE ONE Administration ORDERS Category Date Time Status CT abdomen pelvis wo con Stat Cat Scan 06/04/24 14:31 Completed Complete Blood Count Auto Diff Stat Lab 06/04/24 14:29 Completed Comprehensive Metabolic Panel Stat Lab 06/04/24 14:29 Completed HIV (1&2) Antibody Rapid Stat Lab 06/04/24 14:29 Completed Hep C Ab with Reflex to RNA Stat Lab 06/04/24 14:29 Received UA [Urinalysis and Microscopic] Stat Lab 06/04/24 14:21 Completed Urine Culture Stat Micro 06/04/24 14:31 Ordered Medical Decision Narrative: In summary, this patient is a 48-year-old female presenting to the Emergency Department for evaluation of left flank pain. Differential diagnoses considered include but are not limited to ureterolithiasis, pyelonephritis, infected stone, sepsis, TIESHA. Ruling out the most morbid conditions drove assessment. It should be noted patient's history includes tobacco use which is not at goal therapy. This complicates all aspects of care by increasing patient's risk for morbidity. I reviewed patient's past medical records and noted previous evaluations with most recent being in 2021 for kidney stone. On exam, the patient is sitting upright in bed in no acute distress. She has left CVA tenderness. Workup included CBC, CMP, urinalysis, urine culture, CT abd pelvis without IV contrast. It would be difficult to ascertain whether or not the patient has an infected stone given urine will show false positive for nitrates and other markers given that she took Pyridium. She was given a liter bolus of IV fluids as well as IV Toradol and acetaminophen for symptomatic improvement. I independently interpreted CT scan prior to the radiologist read and noted proximal obstructive left ureterolithiasis with significant hydronephrosis. Please see their read for final interpretation. Labs demonstrated mild leukocytosis as well as TIESHA with a creatinine of 1.1 from 0.8. Urine is outside is difficult to determine whether or not the patient has an infection given that she took Pyridium. Ultimately, she would likely require transfer for possibly infected obstructive stone. Patient care signed out to the oncoming provider, Dr. Moody. This is Dr. Moody I took over from Dr. Merlos around [address] Merlos and I discussed transfer versus discharge. Patient has a nitrite positive urine as well as a mild increase in her creatinine. We were in the process of transferring but I had an extensive discussion with risk and benefits of options with the patient. I explained that given the fact that she has no signs or symptoms of urinary tract infection that her urinalysis is likely falsely positive in the setting of Pyridium use. However we cannot be definitively sure of this. She is very comfortable on my reassessment has no refractory symptoms. She states that she would like to go home with close outpatient follow-up with urology and return with any significant worsening of her symptoms which I believe is reasonable. I have given her prescription of cefdinir and advised that if her urine culture is negative that she may discontinue this. She has been given a referral to Dr. Vidales advised to return here or to the emergency department that has urology coverage if she worsens. She was discharged in a stable and improved condition. Critical Care <Frannie Merlos, DO - Last Filed: 06/04/24 15:27> Critical Care Time Critical Care Time: No
[2024-06-04 14:37] LABS: Bilirubin,Urine 2+ (Negative)
[2024-06-04 14:39] LABS: Bacteria,Urine 1+ /lpf; Yeast,Urine Occasional /lpf
[2024-06-04] MEDS: ACETAMINOPHEN 1,000MG/100ML VIAL 1000 MG IV (14:39)
[2024-06-04] MEDS: LACTATED RINGERS 1000ML 1,000 ML 999 ML IV (14:40)
[2024-06-04] MEDS: KETOROLAC 30MG/ML VIAL 15 MG IV (14:40)
[2024-06-04 14:49] LABS: Chloride 106 mmol/L (98-107); Potassium 4.3 mmoL/L (3.5-5.1); Sodium 136 mmol/L (136-145)
[2024-06-04 14:51] LABS: Blood Urea Nitrogen 22 mg/dl (7-17); Creatinine Clearance Estimated 73 mL/min (50-200); Estimated Glomerular Filt Rate 53 ml/min (>60); GFR (African American) 64 ML/MIN (>60)
[2024-06-04 14:52] LABS: Alanine Aminotransferase 22 U/L (12-78); Alkaline Phosphatase 105 U/L (38-126); Anion Gap 11.3 mEq/L (5-15); Aspartate Amino Transferase 30 U/L (14-36); Calcium 9.2 mg/dl (8.4-10.2); Carbon Dioxide 23 mmol/L (22.0-30.0); Glucose 89 mg/dl (74-100)
[2024-06-04 15:00] VITALS: BP 103/60; PULSE 79; RESP 18; O2SAT 98
[2024-06-04 15:08] LABS: HIV (1&2) Antibody Rapid NONREACTIVE (NONREACTIVE)
[2024-06-04 15:26] LABS: Albumin/Globulin Ratio 1.6 (1.1-1.8); Globulin 2.7 g/dL (1.3-3.2)
[2024-06-04 15:30] VITALS: BP 134/81; PULSE 72; RESP 18; O2SAT 99
[2024-06-04 15:35] LABS: Albumin Level 4.3 g/dl (3.5-5.0)
[2024-06-04] MEDS: TAMSULOSIN 0.4MG CAPSULE 0.4 MG PO (15:43)
[2024-06-04] MEDS: MORPHINE 4MG/ML SYRINGE 4 MG IV (15:43)
[2024-06-04] MEDS: CEFTRIAXONE SODIUM 2 GM in 0.9 % SODIUM CHLORIDE 100 ML IV (15:43)
[2024-06-04 16:40] VITALS: BP 134/81; PULSE 72; RESP 18; TEMP 36.7; O2SAT 99
[2024-06-07 05:15] LABS: HCV Ab Non Reactive (Non Reactive)
== END 2024-06-04 16:41 | disposition home or self-care (01) ==
PROVIDERS: Emergency Medicine; Emergency Provider Student in an Organized Health Care Education/Training Program; PCP Social Worker
DX: N13.2 Hydronephrosis with renal and ureteral calculous obstruction (principal); R10.32 Left lower quadrant pain
CPT/HCPCS: 74176; 80053; 81001; 85025; 86803; 87086; 87389; 96361; 96374; 96375; 99284; J0131; J0696; J1885; J2270; J7120

== ENCOUNTER 2024-11-12 17:54 | Emergency (ER) | payer OTHER, SELFPAY ==
--- NOTE | 2024-11-12 17:55 | ECG_ITS ---
APPROVED REPORT Exam: Resting ECG HR:96 bpm ECG Measurements Heart Rate 96 AXES NM 117 P 44 QRSd 82 QRS 107 QT 336 T -3 QTc 390 Conclusion SINUS RHYTHM WITH SHORT NM INTERVAL RIGHT AXIS DEVIATION [QRS AXIS > 100] NONSPECIFIC ST & T-WAVE ABNORMALITY ABNORMAL ECG UNCONFIRMED REPORT Electronically signed by : BARBI RICE, 11/13/2024 03:14:01
[2024-11-12 18:00] VITALS: BP 146/100; PULSE 91; RESP 17; O2SAT 97
[2024-11-12 18:01] VITALS: BP 154/96; PULSE 90; RESP 22; TEMP 37; O2SAT 100; BMI 27.4
[2024-11-12 18:06] VITALS: BP 133/85; PULSE 92; RESP 16; O2SAT 100
--- NOTE | 2024-11-12 18:06 | HMH.EDGENADL ---
Discharge Plan Disposition Patient Disposition: Home, Self-Care Prescriptions Prescriptions: New nicotine 14 mg/24 hr patch 24 hour 1 patch transdermal DAILY Qty: 28 0RF hydrocodone-acetaminophen 5-325 mg tablet 1 tab PO Q6H PRN (Reason: pain (scale score 7-10)) Qty: 10 0RF tamsulosin 0.4 mg capsule 0.4 mg PO DAILY Qty: 7 0RF ketorolac 10 mg tablet 10 mg PO Q8H PRN (Reason: pain) 5 Days Qty: 15 0RF No Action budesonide-formoterol [Breyna] 160-4.5 mcg/actuation HFA aerosol inhaler 2 puff INHALATION BID Patient Comments: INHALE 2 PUFFS BY MOUTH TWICE DAILY promethazine-DM 6.25-15 mg/5 mL syrup 5 ml PO Q6H PRN (Reason: cough) Qty: 118 0RF azithromycin [Zithromax Z-Eh] 250 mg tablet See Rx Instructions .ROUTE .COMPLEX 5 Days Qty: 6 0RF Rx Instructions: For 250 mg dose pack: take 500 mg today (day 1), then 250 mg for 4 days (days 2-5) methylprednisolone [Medrol (Eh)] 4 mg tablets,dose pack See Rx Instructions .Route .COMPLEX 6 Days Qty: 21 0RF Rx Instructions: taper pack; hydrocodone-acetaminophen 5-325 mg tablet 1 tab PO Q6H PRN (Reason: pain) 3 Days Qty: 12 0RF ibuprofen 600 mg tablet 600 mg PO Q8H PRN (Reason: pain) 7 Days Qty: 21 0RF ondansetron 4 mg tablet,disintegrating 4 mg PO Q6H PRN (Reason: nausea and vomiting) 5 Days Qty: 20 0RF cefdinir 300 mg capsule 300 mg PO BID 10 Days Qty: 20 0RF Referrals Follow up/Referrals: Provider,Referral, MD [Referring] - See instructions Activity Restrictions/Add. Instructions Additional Instructions/Restrictions: You were evaluated in the emergency department today. You were diagnosed with a kidney stone. Follow-up closely with urology. We do not have an interventional urologist at our healthcare facility, but one close option is Dr. Alexander Dove in [place] ([facility] - [address], [address], [place] [address] - [phone]). Please make sure you drink plenty of fluids and stay orally hydrated. Toradol is an NSAID like ibuprofen and aleve, so do not take other NSAIDs while taking this medication. Try getting by with toradol and Tylenol, but you may choose to take the narcotic pain medication provided to you in the event of severe pain not controlled by these medications. Do not drive or operate heavy machinery while taking narcotic pain medication, as it can be sedating. Narcotic pain medication can be addicting and can cause constipation. Follow-up closely with your primary care provider as well. Return to the emergency department for new or worsening symptoms such as significant worsening in pain, fever greater than 100.4 ?F, intractable nausea and vomiting. You can also contact Dr. Milan Salinas at [phone] to schedule an outpatient appointment as he is already aware of you. [facility] said they would contact you as well sometime in the next few days to schedule an appointment. You could call to see which one get you in earlier in order to have this treated as well. Clinical Impressions Clinical Impression: Hydronephrosis with urinary obstruction due to ureteral calculus, Renal colic on left side Instructions Patient Instructions: DI for Acute Abdominal Pain Print Language Print Language: Irish Discharge ED Provider: Tato Newman General Adult HPI General Chief complaint: Abdominal Pain Stated complaint: SOA Time Seen by Provider: 11/12/24 17:55 Mode of Arrival: Ambulatory Source of Information: Patient and Spouse Description of Symptoms (Recalled from ER Triage Doc. by RN): pt having urinary symptoms, back ,flank pain. lower abdominal pain. History of Present Illness HPI narrative: Please note that above description of symptoms, in this electronic medical record under categorization of recalled from ER triage doctor by RN are reflective of an initial nursing assessment, however, is not reflective of my full history and physical exam that was personally taken and clarified. Consequentially, this preceding description of symptoms, which may include the patient's categorized chief complaint in the EMR, do not reflect my personal clinical impression, and the ultimate description of history of present illness and patient stated complaints should be deferred to this section of the note. Unless stated otherwise or congruent with this section of the note, additional signs, symptoms, or incongruence should be interpreted as inaccurate with my clinical impression. Related Data Home Medications ?Medication ?Instructions ?Recorded ?Confirmed budesonide-formoterol HFA 160 2 puff inhalation BID 05/15/24 05/15/24 mcg-4.5 mcg/actuation aerosol inhaler (Breyna) Previous Rx's ?Medication ?Instructions ?Recorded azithromycin 250 mg tablet See Rx Instructions PO .COMPLEX 5 05/15/24 (Zithromax Z-Eh) days #6 tabs methylprednisolone 4 mg tablets in See Rx Instructions .Route 05/15/24 a dose pack (Medrol (Eh)) .COMPLEX 6 days #21 tabs promethazine-DM 6.25 mg-15 mg/5 mL 5 ml PO Q6H PRN cough #118 mL 05/15/24 oral syrup cefdinir 300 mg capsule 300 mg PO BID 10 days #20 caps 06/04/24 hydrocodone 5 mg-acetaminophen 325 1 tab PO Q6H PRN pain 3 days #12 06/04/24 mg tablet tabs ibuprofen 600 mg tablet 600 mg PO Q8H PRN pain 7 days #21 06/04/24 tabs ondansetron 4 mg disintegrating 4 mg PO Q6H PRN nausea and 06/04/24 tablet vomiting 5 days #20 tabs hydrocodone 5 mg-acetaminophen 325 1 tab PO Q6H PRN pain (scale score 11/12/24 mg tablet 7-10) #10 tabs ketorolac 10 mg tablet 10 mg PO Q8H PRN pain 5 days #15 11/12/24 tabs nicotine 14 mg/24 hr daily 1 patch transdermal DAILY #28 ea 11/12/24 transdermal patch tamsulosin 0.4 mg capsule 0.4 mg PO DAILY #7 caps 11/12/24 Allergies Allergy/AdvReac Type Severity Reaction Status Date / Time No Known Allergies Allergy Verified 05/08/22 04:40 [facility] Disclaimer: The information contained in this section may have been updated after the patient was seen, as this information can be updated by other users. Medical History Urinary tract infection Kidney stone Anxiety Pulmonary fibrosis, unspecified History of COVID-19 COPD (chronic obstructive pulmonary disease) Surgical History History of cholecystectomy Social History Smoking Status: Current every day smoker alcohol intake: never current occupational status: employed Travel in the last 8 weeks: None Have you lived/traveled outside [place] in past 30 days?: No Contact w/someone who lives/traveled outside US past 30 days?: No Exposure to someone with infectious disease in past 14 days?: No Do you have a fever (greater than 100.4 F or 38 C)?: No Have you tested positive for COVID-19: No Exposed to someone with COVID-19 in past 14 days?: No Do you have a sore throat?: No Do you have a cough?: No Do you have any weakness?: No Do you have any diarrhea?: No Are you experiencing any unusual bleeding?: No Do you have any muscle aches/pain?: No Do you have any abdominal pain?: No Are you experiencing loss of taste or smell?: No ROS Obtained: Yes All systems reviewed & no additional complaints except as documented Physical Exam General General appearance: alert and in no apparent distress Head Head exam: atraumatic and normocephalic Eye Eye exam: Present normal appearance, PERRL and EOMI Neck Neck exam: Present normal inspection, full ROM and trachea midline Respiratory Respiratory exam: Absent respiratory distress, wheezes, stridor, accessory muscle use or prolonged expiratory phase Cardiovascular Cardiovascular exam: Present regular rate, normal rhythm and other (Pulses equal symmetric in upper and lower extremities) Abdominal Exam Abdominal exam: Present soft; Absent distention, tenderness, guarding, rebound, rigidity or pulsatile mass Extremities Exam Extremities exam: Absent edema Neurological Exam Neurological exam: Present alert, oriented X3 and CN II-XII intact; Absent motor sensory deficit Skin Skin exam: Present warm and dry; Absent diaphoresis or erythema Medical Decision Making Medical Records Medical records reviewed: Yes I reviewed the patient's medical records. Screening: Per USPSTF and CDC recommendations, given the prevalence of disease in our region, it is our hospital?s policy to screen for HIV and viral Hepatitis for all patients aged 18 and over and those with ongoing risk factors. Tam Inquiry Pt receiving controlled substance: No Tam was queried for this patient: No Vital Signs: 11/12/24 18:00 11/12/24 18:01 11/12/24 18:06 Temperature 98.6 F Temperature Source Oral Pulse Rate 91 H 92 H Pulse Rate [Right] 90 Respiratory Rate 17 22 16 Blood Pressure 146/100 H 133/85 Blood Pressure [Right Arm] 154/96 H Blood Pressure Mean [Right Arm] 115 02 Sat by Pulse Oximetry 97 100 100 Oxygen Delivery Method Room Air Room Air Lab Data Lab Results 11/12/24 17:58: WBC 12.4 H, RBC 5.19, Hgb 15.9, Hct 46.7, MCV 90.0, MCH 30.6, MCHC 34.0, RDW 12.1, Plt Count 314, MPV 10.1, Neut % (Auto) 77.2, Lymph % (Auto) 12.0, [place] % (Auto) 6.7, Eos % (Auto) 3.3, Baso % (Auto) 0.4, Neut # (Auto) 9.6 H, Lymph # (Auto) 1.5, [place] # (Auto) 0.8, Eos # (Auto) 0.4, Baso # (Auto) 0.1, PT 10.2, INR 0.90, APTT 28.6, Sodium 137, Potassium 4.0, Chloride 112 H, Carbon Dioxide 16 L, Anion Gap 13.0, BUN 15, Creatinine 0.80, Estimated Creat Clear 101, Estimated GFR 76, Est GFR ( Amer) 92, Glucose 106 H, Calcium 9.4, Total Bilirubin 1.0, AST 27, ALT 24, Alkaline Phosphatase 123, Troponin I < 0.01, Total Protein 7.5, Albumin 4.8, Globulin 2.7, Albumin/Globulin Ratio 1.8, Lipase 50, HCV Ab MAR w/Rflx PCR Qn Negative, HIV Ag/Ab Combo Qual Negative 11/12/24 18:10: Urine Color Yellow, Urine Appearance Slightly cloudy, Urine pH 5.5, Ur Specific Logan 1.015, Urine Protein Negative, Urine Glucose (UA) Negative, Urine Ketones Negative, Urine Blood Trace A, Urine Nitrate Negative, Urine Bilirubin Negative, Urine Urobilinogen 0.2, Ur Leukocyte Esterase 1+ A, Urine RBC 3-5, Urine WBC 3-5, Ur Squamous Epith Cells 5-10, Urine Bacteria Trace 11/12/24 17:58 11/12/24 17:58 Orders (Tests/Meds): ED MEDICATIONS Generic Name Dose Route Start Last Admin Trade Name Freq PRN Reason Stop Dose Admin Hydrocodone Bitart/Acetaminophen 1 tab 11/12/24 22:46 Hydrocodone/Apap 5/325 Mg Tablet PO 11/12/24 22:47 ONCE ONE Tamsulosin HCl 0.4 mg 11/12/24 22:47 Tamsulosin 0.4mg Capsule PO 11/12/24 22:48 ONCE ONE Discontinued Medications Generic Name Dose Route Start Last Admin Trade Name Freq PRN Reason Stop Dose Admin Sodium Chloride 1,000 mls @ 999 mls/hr 11/12/24 18:04 11/12/24 18:38 Sod Chlor 0.9% 1000ml Bag IV 11/12/24 19:04 999 mls/hr .Q1H1M ONE Administration Ketorolac Tromethamine 15 mg 11/12/24 18:04 11/12/24 18:38 Ketorolac 30mg/Ml Vial IV 11/12/24 18:05 15 mg ONCE ONE Administration ORDERS Category Date Time Status CT abdomen pelvis wo con Stat Cat Scan 11/12/24 19:04 Completed Complete Blood Count Auto Diff Stat Lab 11/12/24 17:58 Completed Comprehensive Metabolic Panel Stat Lab 11/12/24 17:58 Completed HIV Combo Stat Lab 11/12/24 17:58 Completed Hepatitis C Ab Qual. W/ RFX Stat Lab 11/12/24 17:58 Completed Lipase Stat Lab 11/12/24 17:58 Completed PT INR [Prothrombin Time INR] Stat Lab 11/12/24 17:58 Completed PTT [Activated Partial Thrombo Time] Stat Lab 11/12/24 17:58 Completed Trop I [Troponin I] Stat Lab 11/12/24 17:58 Completed Troponin I Q3H Lab 11/13/24 00:15 Ordered Urinalysis and Microscopic Stat Lab 11/12/24 18:10 Completed Urine Culture Stat Micro 11/12/24 18:10 Received Medical Decision Narrative: 49-year-old female presenting with multiple complaints. States that she came in because she has been nauseous all day, not feeling well, has been having reflux into the back of her throat, but no actual vomiting. No diarrhea, fevers, chills, constitutional symptoms. States that she has not had any worsening cough, chest pain, shortness of breath. States that when she got to the emergency department in registration, felt nauseated and burped some stuff up. Irritated throat, started coughing at nights when she felt short of breath, but no longer feeling short of breath. She states this feels most consistent with kidney stone she has had in the past. States that she has nausea, abdominal pain and intermittent back pain in line. No urinary symptoms associated history was obtained via conversation with patient. On arrival, patient hemodynamically stable, alert, [oriented x4, ][appropriate, ]GCS [15], moving all extremities spontaneously, pupils equal and reactive to light. Full physical exam performed and significant for well-appearing female no acute distress. Nontachypneic, nontachycardic, speaking full sentences. Cardiac exam normal, no lower extremity edema. Pulses equal and symmetric in upper and lower extremities. Lungs are clear anteriorly and posteriorly. Abdomen soft, nontender, nondistended. No overlying skin changes. No flank tenderness on my exam. Unremarkable exam overall. Differential includes UTI, nephrolithiasis,. Patient placed on continuous cardiac monitoring and continuous pulse ox with initial blood pressure 154/96, heart rate 90, saturation 100% on room air. [Independent interpretation of EKG shows] sinus rhythm 96 bpm with TX 117, QRS 82, QTc 390. Right axis deviation. T wave inversions in 3 and aVF without reciprocal change.. Workup independently interpreted and significant for leukocytosis 12,000 with neutrophilia. Coags nonactionable, normal kidney function. Troponin negative. Lipase negative. Urinalysis with blood and inflammation, CT of the abdomen and pelvis was ordered without contrast. On independent interpretation of imaging, patient has left-sided hydronephrosis secondary to greater than 7 mm stone. On reevaluation, patient states that she is feeling much better, still not having additional pain. Because we do not have urology, urology at [place] was contacted. Have no urology on currently. [facility] contacted, no beds. [facility] contacted , stated she is appropriate for outpatient management. [facility] Given patient presentation, workup, history, this most likely represents obstructing nephrolithiasis uncomplicated. Patient given first dose of [place], tamsulosin and rest of meds were sent to pharmacy. [facility] stated they will contact her, also provided with [facility] in case she would prefer to get there. Close return precautions discussed [employer] Worker disclaimer Much of this encounter note is an electronic certified nurses' aide spoken language to printed text. Electronic certified nurses' aide of the spoken language may permit errors. Although I have reviewed the note, some errors may still exist. Critical Care Critical Care Time Critical Care Time: No
[2024-11-12 18:14] LABS: Basophils # 0.1 K/mm3 (0-0.2); Basophils % 0.4 % (0.1-2.0); Eosinophils # 0.4 K/mm3 (0.0-0.4); Eosinophils % 3.3 % (0.1-12.0); Hematocrit 46.7 % (37.0-47.0); Hemoglobin 15.9 g/dL (12.2-16.2); Lymphocytes # 1.5 K/mm3 (0.7-4.5); Mean Corpuscular Hemoglobin 30.6 pg (27.0-31.2); Mean Platelet Volume 10.1 fl (7.4-10.4); Monocytes # 0.8 K/mm3 (0.1-1.0); Monocytes % 6.7 % (1.7-9.3); Neutrophils # 9.6 K/mm3 (1.8-7.8); Neutrophils % 77.2 % (37.0-80.0); Platelet Count 314 K/mm3 (142-424); Red Blood Count 5.19 M/mm3 (4.20-5.40); Red Cell Distribution Width 12.1 % (11.5-17.5); White Blood Count 12.4 K/mm3 (4.8-10.8)
[2024-11-12 18:14] LABS: Microscopic, Urine URINE MICROSCOPIC (MICROSCOPIC)
[2024-11-12 18:17] LABS: Albumin Level 4.8 g/dl (3.5-5.0); Chloride 112 mmol/L (98-107); Sodium 137 mmol/L (136-145)
[2024-11-12 18:19] LABS: Blood Urea Nitrogen 15 mg/dl (7-17); Creatinine Clearance Estimated 101 mL/min (50-200); Estimated Glomerular Filt Rate 76 ml/min (>60); GFR (African American) 92 ML/MIN (>60)
[2024-11-12 18:20] LABS: Alanine Aminotransferase 24 U/L (12-78); Albumin/Globulin Ratio 1.8 (1.1-1.8); Alkaline Phosphatase 123 U/L (38-126); Aspartate Amino Transferase 27 U/L (14-36); Calcium 9.4 mg/dl (8.4-10.2); Carbon Dioxide 16 mmol/L (22.0-30.0); Globulin 2.7 g/dL (1.3-3.2); Glucose 106 mg/dl (74-100); Lipase 50 U/L (23-300); Total Protein,Serum 7.5 g/dl (6.3-8.2)
[2024-11-12 18:23] LABS: Appearance,Urine Slightly Cloudy (Clear); Bilirubin,Urine Negative (Negative); Blood, Urine Trace (Negative); Color,Urine Yellow (Yellow); Glucose,Urine (UA) Negative (Negative); Ketones,Urine Negative (Negative); Leukocyte Esterase,Urine 1+ (Negative); Nitrate,Urine Negative (Negative); PH,Urine 5.5 (5.0-8.5); Protein,Urine Negative (Negative); Specific Gravity, Urine 1.015 (1.005-1.030); Urobilinogen,Urine 0.2 EU/dl (0.2)
[2024-11-12 18:27] LABS: Prothrombin Time 10.2 seconds (10.1-12.5)
[2024-11-12 18:35] LABS: Troponin I < 0.01 ng/ml (0.00-0.034)
[2024-11-12] MEDS: 0.9 % SODIUM CHLORIDE 1000ML 1,000 ML 999 ML IV (18:38)
[2024-11-12] MEDS: KETOROLAC 30MG/ML VIAL 15 MG IV (18:38)
[2024-11-12 18:41] LABS: Activated Partial Thrombo Time 28.6 seconds (22.8-30.6)
[2024-11-12 18:52] LABS: Bacteria,Urine Trace /lpf
--- NOTE | 2024-11-12 19:04 | CT_ITS ---
PROCEDURE INFORMATION: Exam: CT Abdomen And Pelvis Without Contrast Exam date and time: 11/12/2024 7:18 PM Age: 49 years old Clinical indication: Other: Hematuria; Additional info: Midline BP and hematuria with vomiting TECHNIQUE: Imaging protocol: Computed tomography of the abdomen and pelvis without contrast. Radiation optimization: All CT scans at this facility use at least one of these dose optimization techniques: automated exposure control; mA and/or kV adjustment per patient size (includes targeted exams where dose is matched to clinical indication); or iterative reconstruction. COMPARISON: CT ABDOMEN PELVIS WO CON 06/04/2024 2:42 PM FINDINGS: Liver: Normal. No mass. Gallbladder and biliary ducts: Surgically absent gallbladder. Pancreas: Normal. No ductal dilation. Spleen: Normal. No splenomegaly. Adrenal glands: Normal. No mass. Kidneys and ureters: Three tiny calculi cluster measuring between 0.2 and 0.3 cm in distal ureter at level of pelvic brim with proximal hydroureter. Stomach and bowel: Unremarkable. No obstruction. No mucosal thickening. Appendix: No evidence of appendicitis. Intraperitoneal space: Unremarkable. No free air. No significant fluid collection. Vasculature: Unremarkable. No abdominal aortic aneurysm. Lymph nodes: Unremarkable. No enlarged lymph nodes. Urinary bladder: Unremarkable as visualized. Reproductive: Unremarkable as visualized. Bones/joints: Unremarkable. No acute fracture. Soft tissues: Unremarkable. IMPRESSION: Left distal ureteral calculi with proximal hydroureter.
[2024-11-12 19:18] LABS: HIV Combo NEGATIVE (Negative)
[2024-11-12 19:26] LABS: Hepatitis C Ab Qual. W/ RFX NEGATIVE (Negative)
--- NOTE | 2024-11-12 19:48 | PC.NURSE ---
spoke with mario, we are awaiting a call back at this time
--- NOTE | 2024-11-12 20:05 | PC.NURSE ---
[facility] call and [place] does not have urology this weekend. She is checking with Ulices Christina and will call us back.
--- NOTE | 2024-11-12 20:22 | PC.NURSE ---
[facility] from [facility] called to inform us that [facility] has no beds. Informed Dr. Newman
--- NOTE | 2024-11-12 20:29 | PC.NURSE ---
Spoke with [facility], awaiting a call back at this time
--- NOTE | 2024-11-12 22:08 | PC.NURSE ---
Spoke with transfer center to see about an update. they will call us back as soon as they know something.
[2024-11-12] MEDS: HYDROCODONE/APAP 5/325 MG TABLET 1 TAB PO (22:56)
[2024-11-12] MEDS: TAMSULOSIN 0.4MG CAPSULE 0.4 MG PO (22:56)
[2024-11-12 23:04] VITALS: BP 150/92; PULSE 78; RESP 17; TEMP 36.7; O2SAT 98
== END 2024-11-12 23:06 | disposition home or self-care (01) ==
PROVIDERS: Emergency Provider Emergency Medicine; PCP Social Worker
DX: N13.2 Hydronephrosis with renal and ureteral calculous obstruction (principal); N23 Unspecified renal colic; R06.02 Shortness of breath; M54.9 Dorsalgia, unspecified; R11.0 Nausea; Z72.0 Tobacco use
CPT/HCPCS: 74176; 80053; 81001; 83690; 84484; 85025; 85610; 85730; 86803; 87086; 87389; 93005; 96361; 96374; 99284; J1885; J7030